=== PATIENT | female | born 1945 | race Native Hawaiian/Other Pacific Islander ===

== ENCOUNTER 2019-01-01 07:01 | Inpatient (IN) | payer MEDICARE, BC ==
[2018-12-23 09:37] VITALS: BMI 25.4
--- NOTE | 2019-01-01 09:18 | CP.PCM.HP ---
History of Present Illness - History of Present Illness History of Present Illness: uterine prolapse Present on Admission - Present on Admission Any Indicators Present on Admission: No Review of Systems - Constitutional Constitutional: As Per HPI - EENT Eyes: As Per HPI Nose/Mouth/Throat: As Per HPI - Breasts Breasts: As Per HPI - Cardiovascular Cardiovascular: As Per HPI - Respiratory Respiratory: As Per HPI - Gastrointestinal Gastrointestinal: As Per HPI - Genitourinary Genitourinary: As Per HPI - Reproductive: Female Reproductive:Female: As Per HPI - Menstruation Menstruation: As Per HPI - Musculoskeletal Musculoskeletal: As Per HPI - Integumentary Integumentary: As Per HPI - Neurological Neurological: As Per HPI - Endocrine Endocrine: As Per HPI Past Patient History - Past Medical History & Family History Past Medical History?: Yes - Past Social History Smoking Status: Never Smoked Chewing Tobacco Use: No Alcohol: Occasional - CARDIAC Other/Comment: HX OF POOR CIRCULATION ON BOTH LEGS-ON CILOSTAZOL - PULMONARY Hx Respiratory Disorders: No - NEUROLOGICAL Hx Neurological Disorder: No Hx Dementia: No - HEENT Hx HEENT Problems: No - RENAL Hx Chronic Kidney Disease: No - ENDOCRINE/METABOLIC Hx Endocrine Disorders: No Hx Diabetes Mellitus Type 1: Yes - HEMATOLOGICAL/ONCOLOGICAL Hx Anemia: No Hx Blood Transfusions: No - INTEGUMENTARY Hx Dermatological Problems: No - MUSCULOSKELETAL/RHEUMATOLOGICAL Hx Musculoskeletal Disorders: Yes Hx Arthritis: Yes - GASTROINTESTINAL Hx Gastrointestinal Disorders: No - GENITOURINARY/GYNECOLOGICAL Hx Genitourinary Disorders: Yes Hx Urinary Tract Infection: Yes (STARTED ON CIPRO FOR 7 DAYS-TILL [id number]) Other/Comment: WITH INCONTINENCE - PSYCHIATRIC Hx Emotional Abuse: No Hx Physical Abuse: No - SURGICAL HISTORY Hx Surgeries: Yes Other/Comment: DENTAL WORKS;CYST ON LEFT WRIST-LONG TIME AGO;2 CARDIAC STENTS- 2008;LEFT KNEE-PATELLA FX-2016;OVARIAN CYSTECTOMY 50 YEARS AGO - ANESTHESIA Hx Anesthesia: Yes Hx Anesthesia Reactions: No Hx Malignant Hyperthermia: No Has any member of the family had a problem w/ anesthesia?: No Meds Allergies/Adverse Reactions: Allergies Allergy/AdvReac Type Severity Reaction Status Date / Time No Known Allergies Allergy Verified 12/23/18 09:37 Physical Exam - ENT Exam ENT Exam: Mucous Membranes Dry - Neck Exam Neck exam: Positive for: Full Rom - Rectal Exam Rectal Exam: Deferred - Extremities Exam Extremities exam: Positive for: calf tenderness - Back Exam Back exam: CVA tenderness (L) - Neurological Exam Neurological exam: Oriented x3 - Psychiatric Exam Psychiatric exam: Normal Affect Results - Vital Signs Recent Vital Signs: Last Vital Signs Temp 98 F 01/01/19 07:52 Pulse 68 01/01/19 07:52 Resp 18 01/01/19 07:52 BP 133/58 L 01/01/19 07:52 Pulse Ox 97 01/01/19 07:52 - Labs Labs: Laboratory Results - last 24 hr 01/01/19 07:30 Blood Type A POSITIVE Antibody Screen Negative BBK History Checked No verified bt Assessment & Plan - Assessment and Plan (Free Text) Assessment: uterine prolapse jean - Date & Time Date: 01/01/19 Time: 09:25
[2019-01-01] MEDS ORDERED: Midazolam 2 MG/2 ML VIAL ONE (13:17)
[2019-01-01] MEDS ORDERED: Rocuronium 10 mg/ml (5 ml) ONE ×2 (13:17→15:28)
[2019-01-01] MEDS ORDERED: Lidocaine 4% (Laryng-O-Jet) Kit MM ONE (13:17)
[2019-01-01] MEDS ORDERED: Propofol 10 mg/ml Inj (20 ML) ONE (13:17)
[2019-01-01] MEDS ORDERED: Succinylcholine Chloride 20 mg/ml Syr (5 ml) IV ONE (13:17)
[2019-01-01] MEDS ORDERED: Bupivacaine 0.5% Inj(30mL) ONE (13:19)
[2019-01-01] MEDS ORDERED: cefOXitin IV 1 gm in Dextrose 2 GM/100 ML BAG IVPB ONE (13:19)
[2019-01-01] MEDS ORDERED: Lidocaine 1% Inj (20ml) ONE (13:19)
[2019-01-01] MEDS ORDERED: Lactated Ringer's 1,000 ML IV ONE (13:43)
[2019-01-01] MEDS ORDERED: ePHEDrine 50 mg/ml Inj ONE (13:57)
[2019-01-01] MEDS ORDERED: Labetalol 5mg/ml (4ml) ONE (14:20)
[2019-01-01] MEDS ORDERED: Bupivacaine 0.25% 300 ML in Sodium Chloride 0.9% 300 ML IS ONE ×2 (15:05→15:15)
[2019-01-01] MEDS ORDERED: Neostigmine 1:1000 (1 mg/ml) Inj ONE (15:38)
[2019-01-01] MEDS ORDERED: Esmolol 100 mg/10ml Inj IV ONE (15:40)
[2019-01-01] MEDS ORDERED: cefOXitin Sodium 1 GM in Sodium Chloride 0.9% 100 ML IVPB SCH ×2 (17:00→20:00)
[2019-01-01] MEDS: HYDROmorphone 0.5 mg/0.5 ml ISec IVP PRN ×2 (17:19→17:28)
[2019-01-01] MEDS: Lactated Ringer's 1,000 ML IV SCH (17:45)
[2019-01-01] MEDS: cefOXitin IV 1 gm in Dextrose 1 GM/50 ML BAG IVPB SCH (23:04)
[2019-01-02] MEDS: Lactated Ringer's 1,000 ML IV SCH ×2 (04:03→14:10)
[2019-01-02] MEDS: cefOXitin IV 1 gm in Dextrose 1 GM/50 ML BAG IVPB SCH ×2 (05:48→14:19)
[2019-01-02 08:15] LABS: HEMOGLOBIN 12.3 g/dL (12.0-16.0); MEAN CELL VOLUME 96.1 fl (81.0-99.0); MEAN CORPUSCULAR HEMOGLOBIN 32.8 pg (27.0-31.0); MEAN CORPUSCULAR HGB CONC 34.2 g/dL (33.0-37.0); RBC 3.75 Mil/uL (3.80-5.20); RED CELL DISTRIBUTION WIDTH 12.6 % (11.5-14.5); WHITE BLOOD COUNT 8.3 K/uL (4.8-10.8)
[2019-01-02 08:30] LABS: BLOOD UREA NITROGEN 15 mg/dl (7-17); CALCIUM 8.6 mg/dL (8.4-10.2); GFR NON-AFRICAN AMERICAN > 60
[2019-01-02] MEDS: Enoxaparin 40 mg Syringe SC SCH (09:27)
--- NOTE | 2019-01-02 14:50 | CP.PCM.PN ---
Subjective - Date & Time of Evaluation Date of Evaluation: 01/02/19 Time of Evaluation: 02:50 - Subjective Subjective: no complaints today Objective - Vital Signs/Intake and Output Vital Signs (last 24 hours): Temp Pulse Resp BP Pulse Ox 97.5 F L 60 20 131/66 98 01/02/19 08:35 01/02/19 09:26 01/02/19 08:35 01/02/19 09:26 01/02/19 08:35 Intake and Output: 01/02/19 01/02/19 06:59 18:59 Output Total 1800 Balance -1800 - Medications Medications: Current Medications Amlodipine Besylate (Norvasc) 5 mg PO BID [facility] Enoxaparin Sodium (Lovenox) 40 mg SC DAILY [facility]; Protocol Last Admin: 01/02/19 09:27 Dose: 40 mg Lactated Ringer's (Lactated Ringer's) 1,000 mls @ 100 mls/hr IV .Q10H [facility] Last Admin: 01/02/19 14:10 Dose: Not Given Cefoxitin Sodium (Mefoxin Iv 1 Gm Duplex) 1 gm in 50 mls @ 50 mls/hr IVPB Q8@0630,1430,2230 [facility]; Protocol Stop: 01/02/19 15:29 Last Admin: 01/02/19 14:19 Dose: 50 mls/hr Ketorolac Tromethamine (Toradol) 15 mg IVP Q6 [facility] Last Admin: 01/02/19 09:26 Dose: 15 mg Losartan Potassium (Cozaar) 50 mg PO BID [facility] Last Admin: 01/02/19 12:22 Dose: 50 mg Metoprolol Tartrate (Lopressor) 50 mg PO BID [facility] Last Admin: 01/02/19 09:26 Dose: 50 mg - Labs Labs: 01/02/19 07:00 01/02/19 07:00 - Constitutional Appears: Well - Head Exam Head Exam: NORMAL INSPECTION - Eye Exam Eye Exam: Normal appearance Assessment and Plan - Assessment and Plan (Free Text) Assessment: stable pod1 inccision healing well dressing clean Plan: continue present care onq pump in place and working well continue glucose testing may resume home meds as needed
[2019-01-03] MEDS: Enoxaparin 40 mg Syringe SC SCH (09:35)
--- NOTE | 2019-01-03 10:35 | CP.PCM.PN ---
Subjective - Date & Time of Evaluation Date of Evaluation: 01/03/19 Time of Evaluation: 10:33 - Subjective Subjective: feels better, no SOB chest or leg pains, flatus + but no bm yet Objective - Vital Signs/Intake and Output Vital Signs (last 24 hours): Temp Pulse Resp BP Pulse Ox 98.4 F 65 20 166/71 H 94 L 01/03/19 08:26 01/03/19 09:35 01/03/19 08:26 01/03/19 09:35 01/03/19 08:26 Intake and Output: 01/03/19 01/03/19 06:59 18:59 Intake Total 200 Output Total 200 Balance 0 - Medications Medications: Current Medications Amlodipine Besylate (Norvasc) 5 mg PO BID [facility] Last Admin: 01/03/19 09:35 Dose: 5 mg Bisacodyl (Dulcolax) 10 mg NM ONCE ONE Stop: 01/03/19 10:32 Enoxaparin Sodium (Lovenox) 40 mg SC DAILY [facility]; Protocol Last Admin: 01/03/19 09:35 Dose: 40 mg Lactated Ringer's (Lactated Ringer's) 1,000 mls @ 100 mls/hr IV .Q10H [facility] Last Admin: 01/03/19 00:00 Dose: Not Given Ketorolac Tromethamine (Toradol) 15 mg IVP Q6 [facility] Last Admin: 01/03/19 09:46 Dose: 15 mg Losartan Potassium (Cozaar) 50 mg PO BID [facility] Last Admin: 01/03/19 09:34 Dose: 50 mg Metoprolol Tartrate (Lopressor) 50 mg PO BID [facility] Last Admin: 01/03/19 09:34 Dose: 50 mg - Labs Labs: 01/02/19 07:00 01/02/19 07:00 - Constitutional Appears: No Acute Distress - Head Exam Head Exam: ATRAUMATIC - Neck Exam Neck Exam: Full ROM - Respiratory Exam Respiratory Exam: NORMAL BREATHING PATTERN - GI/Abdominal Exam Additional comments: soft ND, depressible, dressing intact removed no active bleeding or discharge gordon in place, On Q pumps in place working well. - Extremities Exam Additional comments: no leg calf tenderness - Neurological Exam Neurological Exam: Alert, Awake, Oriented x3 - Psychiatric Exam Psychiatric exam: Normal Affect Assessment and Plan - Assessment and Plan (Free Text) Assessment: POD #2 surgically stable but sugars still high and not controlled Plan: Dulcolax supt this pm if no bm; will get hospitalist consult for sugar controlled and possible re-starting on insulin
[2019-01-03] MEDS: Lactated Ringer's 1,000 ML IV SCH ×2 (11:04)
[2019-01-04] MEDS: Enoxaparin 40 mg Syringe SC SCH (08:57)
--- NOTE | 2019-01-04 13:06 | CP.PCM.CON ---
History of Present Illness - History of Present Illness History of Present Illness: Consult note for Dr. Martinez, 73 yo female with pmhx of hypertension and diabetes seen and evaluated at bedside POD # 3 hysterectomy. Patient is AAOx3 and in NAD. seen at bedside Patient denies any pain at this time. States she had the hysterectomy done because she was bleeding from her vagina. Patient states her sugar is high at this time. Patient admits to taking insuling at home. Denies acute overnight events. Denies f/n/v/sob. Pmhx: htn, DM Pshx: hysterectomy, cyst removal from ovary and left wrist, left patellar frac ture Social hx: denies smoking, occasional white wine drinker Allergies: NKFDA PMD: Dr. Burgess Past Patient History - Past Medical History & Family History Past Medical History?: Yes - Past Social History Smoking Status: Never Smoked Chewing Tobacco Use: No Alcohol: Occasional - CARDIAC Other/Comment: HX OF POOR CIRCULATION ON BOTH LEGS-ON CILOSTAZOL - PULMONARY Hx Respiratory Disorders: No - NEUROLOGICAL Hx Neurological Disorder: No Hx Dementia: No - HEENT Hx HEENT Problems: No - RENAL Hx Chronic Kidney Disease: No - ENDOCRINE/METABOLIC Hx Endocrine Disorders: No Hx Diabetes Mellitus Type 1: Yes - HEMATOLOGICAL/ONCOLOGICAL Hx Anemia: No Hx Blood Transfusions: No - INTEGUMENTARY Hx Dermatological Problems: No - MUSCULOSKELETAL/RHEUMATOLOGICAL Hx Musculoskeletal Disorders: Yes Hx Arthritis: Yes - GASTROINTESTINAL Hx Gastrointestinal Disorders: No - GENITOURINARY/GYNECOLOGICAL Hx Genitourinary Disorders: Yes Hx Urinary Tract Infection: Yes (STARTED ON CIPRO FOR 7 DAYS-TILL [id number]) Other/Comment: WITH INCONTINENCE - PSYCHIATRIC Hx Emotional Abuse: No Hx Physical Abuse: No - SURGICAL HISTORY Hx Surgeries: Yes Other/Comment: DENTAL WORKS;CYST ON LEFT WRIST-LONG TIME AGO;2 CARDIAC STENTS- 2008;LEFT KNEE-PATELLA FX-2017;OVARIAN CYSTECTOMY 50 YEARS AGO - ANESTHESIA Hx Anesthesia: Yes Hx Anesthesia Reactions: No Hx Malignant Hyperthermia: No Has any member of the family had a problem w/ anesthesia?: No Meds Allergies/Adverse Reactions: Allergies Allergy/AdvReac Type Severity Reaction Status Date / Time No Known Allergies Allergy Verified 12/23/18 09:37 - Medications Medications: Current Medications Amlodipine Besylate (Norvasc) 5 mg PO BID [facility] Last Admin: 01/04/19 08:57 Dose: 5 mg Enoxaparin Sodium (Lovenox) 40 mg SC DAILY [facility]; Protocol Last Admin: 01/04/19 08:57 Dose: 40 mg Glipizide (Glucotrol) 10 mg PO DAILY [facility] Lactated Ringer's (Lactated Ringer's) 1,000 mls @ 100 mls/hr IV .Q10H [facility] Last Admin: 01/03/19 11:04 Dose: Not Given Insulin Detemir (Levemir) 20 units SC BID [facility] Insulin Human Lispro (Humalog) 0 units SC ACHS [facility]; Protocol Ketorolac Tromethamine (Toradol) 15 mg IVP Q6 [facility] Last Admin: 01/04/19 09:11 Dose: 15 mg Losartan Potassium (Cozaar) 50 mg PO BID [facility] Last Admin: 01/04/19 09:01 Dose: 50 mg Metoprolol Tartrate (Lopressor) 50 mg PO BID [facility] Last Admin: 01/04/19 08:56 Dose: 50 mg Physical Exam - Constitutional Appears: Well, Non-toxic, No Acute Distress - Head Exam Head Exam: ATRAUMATIC, NORMOCEPHALIC - Eye Exam Eye Exam: Normal appearance Pupil Exam: NORMAL ACCOMODATION - ENT Exam ENT Exam: Mucous Membranes Moist - Respiratory Exam Respiratory Exam: Clear to Auscultation Bilateral, NORMAL BREATHING PATTERN - Cardiovascular Exam Cardiovascular Exam: REGULAR RHYTHM, +S1, +S2 - Neurological Exam Neurological exam: Alert, Oriented x3 - Psychiatric Exam Psychiatric exam: Normal Affect Results - Vital Signs Recent Vital Signs: Last Vital Signs Temp 98.5 F 01/04/19 08:33 Pulse 65 01/04/19 09:01 Resp 19 01/04/19 08:33 BP 185/71 H 01/04/19 09:01 Pulse Ox 95 01/04/19 08:33 - Labs Result Diagrams: 01/02/19 07:00 01/02/19 07:00 Labs: Laboratory Results - last 24 hr 01/01/19 01/03/19 01/03/19 07:41 11:08 16:09 POC Glucose (mg/dL) 114 H 352 H 186 H 01/03/19 01/04/19 22:06 05:13 POC Glucose (mg/dL) 177 H 169 H Assessment & Plan - Assessment and Plan (Free Text) Assessment: 73 yo female with pmhx of HTN and DM seen and evaluated at bedside s/p POD #3 hysterectomy. Patient has elevated sugar levels today. Plan: Hysterectomy POD#3 -continue management per Dr. Kenney -continue pain medications per Dr. Kenney DM II -glipizide, levemir, lispro -ACHS HTN -stable -C/w home medications Diet -Heart healthy diet Prophylaxis -DVT: lovenox 40 mg SC
[2019-01-04] MEDS ORDERED: Insulin Lispro (humaLOG) 100 Units/ml Inj SC SCH (16:30)
[2019-01-04 16:54] VITALS: BP 186/76; PULSE 55; RESP 20; TEMP 98.8; O2SAT 97
[2019-01-04] MEDS ORDERED: Insulin Detemir 100 Units/ml Inj SC SCH ×2 (17:00→22:00)
--- NOTE | 2019-01-04 19:34 | CP.PCM.DIS ---
Provider - Provider Date of Admission: 01/01/19 16:49 Attending physician: Marquis Kenney MD Consults: 01/03/19 10:30 Hospitalist Consult Routine Comment: DM Consulting Provider: Roberto Martinez Consulting Physician: Roberto Martinez Reason for Consult: DM 01/03/19 21:54 Diabetic Education Referral Routine Comment: Physician Instructions: Reason For Exam: diabetic teaching Time Spent in preparation of Discharge (in minutes): 20 Hospital Course - Lab Results Lab Results: Most Recent Lab Values WBC 8.3 K/uL (4.8-10.8) 01/02/19 07:00 RBC 3.75 Mil/uL (3.80-5.20) L 01/02/19 07:00 Hgb 12.3 g/dL (12.0-16.0) 01/02/19 07:00 Hct 36.0 % (34.0-47.0) 01/02/19 07:00 MCV 96.1 fl (81.0-99.0) 01/02/19 07:00 MCH 32.8 pg (27.0-31.0) H 01/02/19 07:00 MCHC 34.2 g/dL (33.0-37.0) 01/02/19 07:00 RDW 12.6 % (11.5-14.5) 01/02/19 07:00 Plt Count 134 K/uL (130-400) 01/02/19 07:00 Sodium 134 mmol/l (132-148) 01/02/19 07:00 Potassium 3.9 MMOL/L (3.6-5.0) 01/02/19 07:00 Chloride 101 mmol/L (98-107) 01/02/19 07:00 Carbon Dioxide 24 mmol/L (22-30) 01/02/19 07:00 Anion Gap 13 (10-20) 01/02/19 07:00 BUN 15 mg/dl (7-17) 01/02/19 07:00 Creatinine 0.7 mg/dl (0.7-1.2) 01/02/19 07:00 Est GFR ( Amer) > 60 01/02/19 07:00 Est GFR (Non-Af Amer) > 60 01/02/19 07:00 POC Glucose (mg/dL) 78 mg/dL (65-110) 01/04/19 15:53 Random Glucose 182 mg/dL (65-105) H 01/02/19 07:00 Calcium 8.6 mg/dL (8.4-10.2) 01/02/19 07:00 Blood Type A POSITIVE 01/01/19 07:30 Blood Type Confirm A POSITIVE 01/01/19 08:30 Antibody Screen Negative 01/01/19 07:30 BBK History Checked No verified bt 01/01/19 07:30 Discharge Exam - Head Exam Head Exam: ATRAUMATIC, NORMOCEPHALIC Discharge Plan - Follow Up Plan Condition: GOOD Disposition: HOME/ ROUTINE Instructions: Hysterectomy (DC), Hysterectomy, Abdominal or Laparoscopic Surgery Additional Instructions: follow up with rn ent 1 week Referrals: Margarette Valladares MD [Family Provider] - Marquis Kenney MD [Staff Provider] -
--- NOTE | 2019-01-04 19:37 | CP.PCM.DIS ---
Provider - Provider Date of Admission: 01/01/19 16:49 Attending physician: Marquis Kenney MD Consults: 01/03/19 10:30 Hospitalist Consult Routine Comment: DM Consulting Provider: Roberto Martinez Consulting Physician: Roberto Martinez Reason for Consult: DM 01/03/19 21:54 Diabetic Education Referral Routine Comment: Physician Instructions: Reason For Exam: diabetic teaching Time Spent in preparation of Discharge (in minutes): 20 Hospital Course - Lab Results Lab Results: Most Recent Lab Values WBC 8.3 K/uL (4.8-10.8) 01/02/19 07:00 RBC 3.75 Mil/uL (3.80-5.20) L 01/02/19 07:00 Hgb 12.3 g/dL (12.0-16.0) 01/02/19 07:00 Hct 36.0 % (34.0-47.0) 01/02/19 07:00 MCV 96.1 fl (81.0-99.0) 01/02/19 07:00 MCH 32.8 pg (27.0-31.0) H 01/02/19 07:00 MCHC 34.2 g/dL (33.0-37.0) 01/02/19 07:00 RDW 12.6 % (11.5-14.5) 01/02/19 07:00 Plt Count 134 K/uL (130-400) 01/02/19 07:00 Sodium 134 mmol/l (132-148) 01/02/19 07:00 Potassium 3.9 MMOL/L (3.6-5.0) 01/02/19 07:00 Chloride 101 mmol/L (98-107) 01/02/19 07:00 Carbon Dioxide 24 mmol/L (22-30) 01/02/19 07:00 Anion Gap 13 (10-20) 01/02/19 07:00 BUN 15 mg/dl (7-17) 01/02/19 07:00 Creatinine 0.7 mg/dl (0.7-1.2) 01/02/19 07:00 Est GFR ( Amer) > 60 01/02/19 07:00 Est GFR (Non-Af Amer) > 60 01/02/19 07:00 POC Glucose (mg/dL) 78 mg/dL (65-110) 01/04/19 15:53 Random Glucose 182 mg/dL (65-105) H 01/02/19 07:00 Calcium 8.6 mg/dL (8.4-10.2) 01/02/19 07:00 Blood Type A POSITIVE 01/01/19 07:30 Blood Type Confirm A POSITIVE 01/01/19 08:30 Antibody Screen Negative 01/01/19 07:30 BBK History Checked No verified bt 01/01/19 07:30 - Date & Time of H&P Date of H&P: 01/01/19 Time of H&P: 08:25 Discharge Exam - Head Exam Head Exam: ATRAUMATIC, NORMOCEPHALIC Discharge Plan - Follow Up Plan Condition: GOOD Disposition: HOME/ ROUTINE Patient education suggested?: Yes Instructions: Hysterectomy (DC), Hysterectomy, Abdominal or Laparoscopic Surgery Additional Instructions: 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
--- NOTE | 2019-01-08 03:10 | OP ---
PROCEDURE DATE: 01/01/2019 PREOPERATIVE DIAGNOSIS: Uterine prolapse. POSTOPERATIVE DIAGNOSIS: Uterine prolapse. PROCEDURE: Total abdominal hysterectomy and left salpingo-oophorectomy. SURGEON: Marquis Kenney MD QUALITY CONTROL LAB TECHNICIAN: Andrew Fritz MD ANESTHESIOLOGIST: Baron Oscar MD TYPE OF ANESTHESIA: General anesthesia. ESTIMATED BLOOD LOSS: 75 mL. DESCRIPTION OF PROCEDURE: With the patient in supine position under general anesthesia, the patient was prepped and draped in the usual sterile manner. Dr. Fritz was present assisting in the preparation of the surgery. A Pfannenstiel incision was made in the uterus, taken down to the fascia in layers. The fascia was incised and extended bilaterally. Muscle was from the fascia by sharp dissection. Upon entering the abdominal and pelvic cavity, bowels were packed away with wet laps pushing it away from the operative field. Uterus was then grasped and elevated. There was some small adhesions on the left side of the uterus, which were lysed. The round ligament was grasped, doubly clamped, cut, and ligated. Also on the left side, the same thing was done. The bladder was then pushed away from the low uterine segment from the of the bladder flap downwards after making an incision. Uterine vessels were then skeletonized, doubly clamped, cut and ligated bilaterally. Following this several bites were taken down on the side of the uterus until the vagina was approximated. After that was done, the uterus was removed with the cervix and given to the tech. Following this, the left salpingo-oophorectomy was done without any complication. The vaginal cuff was secured. Hemostasis was also maintained. Pelvic cavity was then irrigated until clean after which Intercede was placed to prevent any adhesions. After this was done, the peritoneum was grasped and closed with #1 Vicryl. The muscle was approximated with #1 Vicryl. The fascia was then closed with 1 Vicryl running interlocking stitch starting at each end and finishing in the midline. Dr. Fritz was doing his half, and I am doing my half. The subcutaneous layer was approximated with a 2-0 plain, and the skin was closed with gordon. The patient tolerated the procedure well and was in satisfactory condition on her way to the recovery room. Dr. Fritz was present from the beginning of the surgery to the end of the surgery. Marquis Kenney MD
== END 2019-01-04 20:35 | disposition home or self-care (01) | DRG 743 ==
LOC: H.OPSURG 07:01 → H.MEDSURG1 16:49
PROVIDERS: ADMIT Specialist; ATTEND Specialist
PROC: 0UB10ZZ Excision of Left Ovary, Open Approach (ICD-10-PCS; 2019-01-01)
PROC: 0UB60ZZ Excision of Left Fallopian Tube, Open Approach (ICD-10-PCS; 2019-01-01)
PROC: 0UT90ZZ Resection of Uterus, Open Approach (ICD-10-PCS; principal; 2019-01-01 09:00)
DX: N81.4 Uterovaginal prolapse, unspecified (principal); N73.6 Female pelvic peritoneal adhesions (postinfective); N88.8 Other specified noninflammatory disorders of cervix uteri; E11.8 Type 2 diabetes mellitus with unspecified complications; I10 Essential (primary) hypertension; Z95.5 Presence of coronary angioplasty implant and graft; Z87.440 Personal history of urinary (tract) infections